=== PATIENT | male | born 1990 | race Caucasian/White ===

== ENCOUNTER 2018-05-16 21:45 | Emergency (ER) | payer BC ==
[2018-05-16] MEDS ORDERED: Adacel (T-DAP) 0.5 ML VIAL ONE (22:22)
[2018-05-16] MEDS ORDERED: Lidocaine 1% (PF) 30 ML VIAL ONE (22:26)
== END 2018-05-16 23:21 | disposition home or self-care (01) ==
LOC: ERS 21:45
DX: S61.212A Laceration without foreign body of right middle finger without damage to nail, initial encounter (principal); Z71.6 Tobacco abuse counseling; F17.210 Nicotine dependence, cigarettes, uncomplicated; W27.0XXA Contact with workbench tool, initial encounter
CPT/HCPCS: 64450; 90471; 90715; 99406; J2001